=== PATIENT | female | born 1955 | race Caucasian/White ===

== ENCOUNTER 2017-12-05 13:02 | Inpatient (IN) ==
--- NOTE | 2017-12-05 13:34 | ED ---
HPI General Chief complaint: Fall Stated complaint: Fall Time Seen by Provider: 12/05/17 13:25 Source: patient Mode of arrival: ambulatory Limitations: no limitations History of Present Illness HPI narrative: 62-year-old female with history of hypertension and hypothyroidism presents emergency department for evaluation following a trip and fall. Patient states she was walking when her ankle rolled and she fell. She landed on her right forearm/elbow. She did not strike her head or lose consciousness. She states since the incident she has been unable to flex or extend the elbow without significant pain. She feels like it is "just flopping. " Pain is constant, throbbing. Moderate severity. She denies any alterations in sensation. She has no other symptoms to report. She last ate around 10 AM this morning. Related Data Home Medications Medication Instructions Recorded Confirmed Singulair 12/05/17 aspirin 81 mg PO DAILY 12/05/17 12/05/17 atenolol 100 mg PO DAILY 12/05/17 12/05/17 levothyroxine 50 mcg PO DAILY 12/05/17 12/05/17 liothyronine 5 mcg PO BID 12/05/17 12/05/17 meloxicam 12/05/17 Allergies Allergy/AdvReac Type Severity Reaction Status Date / Time iodine Allergy Severe Anaphylaxis Verified 12/05/17 13:21 potassium iodide Allergy Severe Anaphylaxis Verified 12/05/17 13:21 povidone-iodine Allergy Severe Anaphylaxis Unverified 12/05/17 13:21 sodium iodide Allergy Severe Anaphylaxis Verified 12/05/17 13:21 sodium iodide Allergy Severe Anaphylaxis Verified 12/05/17 13:21 TYLENOL WITH CODEINE Allergy Intermediate NAUSEA Uncoded 03/05/06 13:22 Review of Systems Except as stated in HPI: all other systems reviewed are negative [facility] Medical History Medical History Chronic pain (Acute) History of hysterectomy (Acute) Hypertension (Acute) Hypothyroidism (Acute) Social History Social History Substance History: No History of Abuse Second Hand Smoke Exposure: Yes Smoking Status: Never smoker How Often Do You Have a Drink Containing Alcohol: Monthly or less Recent Travel in [facility] within the Last 8 Weeks: No Recent Out of Country Travel within the Last 8 Weeks: No Immunization History Tetanus Immunization: >5 Years Hx Influenza Vaccine This Season: No Exam Narrative Exam Narrative: GENERAL: Well-nourished female patient, in no acute distress. SKIN: Focused skin assessment warm/dry. HEAD: Atraumatic. Normocephalic. EYES: Pupils equal and round. No scleral icterus. No injection or drainage. ENT: No nasal bleeding or discharge. Mucous membranes pink and moist. NECK: Trachea midline. No JVD. CARDIOVASCULAR: Regular rate and rhythm. No murmur appreciated. RESPIRATORY: No accessory muscle use. Clear to auscultation. Breath sounds equal bilaterally. GASTROINTESTINAL: Abdomen soft, non-tender, nondistended. Hepatic and splenic margins not palpable. MUSCULOSKELETAL: No obvious deformities. No clubbing. No cyanosis. Swelling of the right elbow. Patient holds the right upper extremity flexed across the abdomen. Distal pulses are palpable. Attempt to extend the right elbow elicits pain. Patient has weakened channel sales manager strength on the right stating that this is the pain in her arm. Cap refills within normal limits. NEUROLOGICAL: Awake and alert. No obvious cranial nerve deficits. Motor grossly within normal limits. Normal speech. PSYCHIATRIC: Appropriate mood and affect; insight and judgment normal. Course Initial Documented Vital Signs Temperature 97.4 F L 12/05/17 13:12 Pulse Rate 75 12/05/17 13:12 Respiratory Rate 16 12/05/17 13:12 Blood Pressure 151/66 H 12/05/17 13:12 Pulse Oximetry 95 12/05/17 13:12 Last Documented Vital Signs Temperature 97.4 F L 12/05/17 13:17 Pulse Rate 72 12/05/17 13:17 Respiratory Rate 16 12/05/17 13:17 Blood Pressure 151/66 H 12/05/17 13:17 Pulse Oximetry 95 12/05/17 13:17 Medical Decision Making DANIKA Attestation DNAIKA supervised visit: Yes Attestation: I, Dr. Eaton, have reviewed the advance practice practitioner's documentation and am in agreement, met with the patient face to face, made the diagnosis, and the medical decision making was done by me. *My assessment and Findings: Patient had a fall onto the elbow and has a fracture dislocation. There is a lot of bone fragments around the joint. He was discussed with Dr. Almaraz who is going to take this patient immediately to the operating room after CT scan is evaluated. Therefore will not attempt reduction at this time. [facility] Narrative Medical decision making narrative: 62-year-old female presents emergency department for evaluation of a right elbow injury sustained today and a trip and fall. Patient is treated for pain. Preop lab work is ordered. x-ray imaging is reviewed and shows a fracture dislocation of the right elbow. I discussed the patient with Dr. Almaraz, orthopedic surgeon chuck wagon cook. He request CT imaging of the elbow to be done as soon as possible and will be taking the patient to the OR. Differential Diagnosis Differential Diagnosis: Fracture versus dislocation versus contusion versus sprain Medical Records Medical records reviewed: Yes I reviewed the patient's medical records. Lab Data Lab results reviewed: Yes I reviewed the patient's lab results. Result diagrams: 12/05/17 13:50 12/05/17 13:50 Lab Results 12/05/17 12/05/17 12/05/17 Range/Units 13:50 13:50 13:50 WBC 11.3 H (4.0-11.0) th/mm3 RBC 4.23 (4.00-5.30) mil/mm3 Hgb 13.2 (11.6-15.3) gm/dL Hct 39.6 (35.0-46.0) % MCV 93.5 (80.0-100.0) fL MCH 31.2 (27.0-34.0) pg MCHC 33.3 (32.0-36.0) % RDW 12.5 (11.6-17.2) % Plt Count 215 (150-450) th/mm3 MPV 10.4 (7.0-11.0) fL Neut % (Auto) 75.8 H (16.0-70.0) % Lymph % (Auto) 15.2 (9.0-44.0) % [place] % (Auto) 7.3 (0.0-8.0) % Eos % (Auto) 1.3 (0.0-4.0) % Baso % (Auto) 0.4 (0.0-2.0) % Neut # (Auto) 8.5 H (1.8-7.7) th/mm3 Lymph # (Auto) 1.7 (1.0-4.8) th/mm3 [place] # (Auto) 0.8 (0.0-0.9) th/mm3 Eos # (Auto) 0.1 (0.0-0.4) th/mm3 Baso # (Auto) 0.0 (0.0-0.2) th/mm3 WBC Differential . Differential Comment Auto diff final PT 10.0 (9.8-11.6) sec INR 1.0 Ratio APTT 25.6 (24.3-30.1) sec Sodium 138 (136-145) meq/L Potassium 4.0 (3.5-5.1) meq/L Chloride 104 (98-107) meq/L Carbon Dioxide 26.4 (21.0-32.0) meq/L Anion Gap 8 (5-15) meq/L BUN 16 (7-18) mg/dL Creatinine 0.89 (0.50-1.00) mg/dL Estimated GFR 65 L (>89) mL/min Random Glucose 95 (74-106) mg/dL Calcium 9.4 (8.5-10.1) mg/dL Imaging Data Radiologist's impression: Elbow X-Ray 12/05/17 13:45 CONCLUSION: Fracture dislocation of the elbow with posterior dislocation of the proximal ulna and radius. Radius neck fracture also identified with displacement of the radial head fragment. Multiple additional small fracture fragments are seen anteriorly and posteriorly, possibly within the joint. Discharge Plan Physicians Team ED Provider: Jonel Eaton ED Midlevel Provider: Tamia Barrera Primary Care Provider: Ambrose Adams Rxs /Orders / Referrals /Forms Prescriptions: No Action atenolol 100 mg Tablet 100 mg PO DAILY RF: 0 levothyroxine 50 mcg Tablet 50 mcg PO DAILY RF: 0 Singulair RF: 0 meloxicam RF: 0 aspirin 81 mg Tablet,Chewable 81 mg PO DAILY RF: 0 liothyronine 5 mcg Tablet 5 mcg PO BID RF: 0 Discharge Interventions Interventions: Vital Signs Last Done: 12/05/17 13:17 Status ED Status: With Doctor
[2017-12-05] MEDS ORDERED: Morphine Inj 4 MG/ML Vial IV.PUSH ONE (13:50)
[2017-12-05 14:07] LABS: Baso % (Auto) 0.4 % (0.0-2.0); Eos # (Auto) 0.1 th/mm3 (0.0-0.4); Eos % (Auto) 1.3 % (0.0-4.0); Hematocrit 39.6 % (35.0-46.0); Hemoglobin 13.2 gm/dL (11.6-15.3); Lymph # (Auto) 1.7 th/mm3 (1.0-4.8); Lymph % (Auto) 15.2 % (9.0-44.0); Mean Corpuscular HGB Conc 33.3 % (32.0-36.0); Mean Corpuscular Hemoglobin 31.2 pg (27.0-34.0); Mean Corpuscular Volume 93.5 fL (80.0-100.0); Mean Platelet Volume 10.4 fL (7.0-11.0); Mono # (Auto) 0.8 th/mm3 (0.0-0.9); Mono % (Auto) 7.3 % (0.0-8.0); Neut # (Auto) 8.5 th/mm3 (1.8-7.7); Neut % (Auto) 75.8 % (16.0-70.0); Platelet Count 215 th/mm3 (150-450); Red Blood Count 4.23 mil/mm3 (4.00-5.30); Red Cell Distribution Width 12.5 % (11.6-17.2); White Blood Count 11.3 th/mm3 (4.0-11.0)
[2017-12-05 14:16] LABS: Activated Partial Thrombo Time 25.6 sec (24.3-30.1)
[2017-12-05 14:29] LABS: Calcium 9.4 mg/dL (8.5-10.1); Carbon Dioxide 26.4 meq/L (21.0-32.0)
--- NOTE | 2017-12-05 15:20 | XR ---
EXAM DATE: 12/05/2017 2:55 PM EDT AGE/SEX: 62 years / Female INDICATIONS: Pain from fall on right side, entire elbow with radiating pain up humerus and down fore arm. CLINICAL DATA: This is the patient's initial encounter. Patient reports that signs and symptoms have been present for 1 day and indicates a pain score of 10/10. MEDICAL/SURGICAL HISTORY: None. None. COMPARISON: No prior exams available for comparison. FINDINGS: 3 views of the right elbow. Posterior dislocation of the radial head and proximal ulna at the elbow. Radial neck fracture with 1.6 cm displacement of the radial head fragment. Large joint effusion. CONCLUSION: Fracture dislocation of the elbow with posterior dislocation of the proximal ulna and radius. Radius neck fracture also identified with displacement of the radial head fragment. Multiple additional smal l fracture fragments are seen anteriorly and posteriorly, possibly within the joint. Electronically signed by: Jose Welch MD 12/05/2017 3:19 PM EDT
[2017-12-05] MEDS ORDERED: Phenylephrine/NS 1000 MCG/10ML Syringe IV.PUSH ONE (15:43)
[2017-12-05] MEDS ORDERED: Glycopyrrolate Inj 1 MG/5 ML Syringe IV.PUSH ONE (15:43)
[2017-12-05] MEDS ORDERED: Lidocaine PF 1% Inj 5 ML Syringe INFILTRATN ONE (15:43)
--- NOTE | 2017-12-05 16:58 | CT ---
EXAM DATE: 12/05/2017 4:51 PM EDT AGE/SEX: 62 years / Female INDICATIONS: Trauma. Fall. Right elbow pain. CLINICAL DATA: This is the patient's initial encounter. Patient reports that signs and symptoms have been present for 1 day and indicates a pain score of 6/10. MEDICAL/SURGICAL HISTORY: Hypertension. None. RADIATION DOSE: 33.22 CTDI (mGy) ; Patient body habitus COMPARISON: No prior exams available for comparison. TECHNIQUE: Multiple contiguous axial images were acquired using a multi-row detector CT scanner. Mu ltiplanar reconstruction was performed in the sagittal and coronal planes. Using automated exposure control and adjustment of the mA and/or kV according to patient size, radiation dose was kept as low as reasonably achievable to obtain optimal diagnostic quality images. DICOM format image data is keily ilable electronically for review and comparison. FINDINGS: Comminuted fracture of the proximal radius involving the head and neck. The dominant fragments of the radial head are displaced posteriorly and abut the posterior surface of the distal humerus. There is marked disruption of the articular surface of the radial head and displacement and rotation of the fragments. Posterior dislocation of the proximal ulna at the elbow.Several small bone fragments anteriorly in th e joint may be related to the coronoid process of the ulna. Large joint effusion. Prominent adjacent soft tissue swelling. CONCLUSION: Fracture dislocation at the elbow with comminuted displaced proximal radius fracture involving the he ad and neck of the radius. Fracture involves the articular surface of the radial head. Proximal ulna is also dislocated posteriorly at the elbow. Electronically signed by: Jose Welch MD 12/05/2017 4:57 PM EDT
--- NOTE | 2017-12-05 17:14 | P.CONOP ---
[facility] Orthopedics Consult Note - [facility] Consult date: 12/05/17 Consult reason: joint pain, fracture Chief complaint: right elbow dislocation/Fracture Narrative: The patient is a 62-year-old female who had a mechanical fall onto the right arm. She noticed immediate deformity and pain about the right elbow. She is unable to move the elbow. The pain was very significant. The patient says that she developed numbness of the right hand and arm following the injury which has been persistent. She denies previous problems in this area in the past. The patient was brought to [facility]. She was found to have a fracture dislocation. I reviewed the x-rays with the emergency room physician. I asked him to obtain a stat CT scan which is just been performed. Review of Systems A 12 point review of systems was reviewed and is negative unless as specified in the history of present illness. [facility] - History History Provided By: Patient - Medical History Medical History: Medical History (Last Reviewed 12/05/17 @ 17:03 by Jaspal Dunn MD) Chronic pain History of hysterectomy Hypertension Hypothyroidism Right bundle branch block - Family History Family History: Family History (Last Updated 12/05/17 @ 17:03 by Jaspal Dunn MD) Other Family history non-contributory - Tobacco History Second Hand Smoke Exposure: Yes Tobacco Use In Past 30 Days: No Smoking Status: Never smoker - Alcohol History How Often Do You Have a Drink Containing Alcohol: Monthly or less - Substance Use History Substance History: No History of Abuse - Travel History Recent Travel in the [place] Within the Last 8 Weeks: No Recent Travel Out of the Country Within the Last 8 Weeks: No - Immunization History Tetanus Immunization: >5 Years Hx Influenza Vaccine This Season: No Medications and Allergies Allergies Allergy/AdvReac Type Severity Reaction Status Date / Time iodine Allergy Severe Anaphylaxis Verified 12/05/17 13:21 potassium iodide Allergy Severe Anaphylaxis Verified 12/05/17 13:21 povidone-iodine Allergy Severe Anaphylaxis Unverified 12/05/17 13:21 sodium iodide Allergy Severe Anaphylaxis Verified 12/05/17 13:21 sodium iodide Allergy Severe Anaphylaxis Verified 12/05/17 13:21 TYLENOL WITH CODEINE Allergy Intermediate NAUSEA Uncoded 12/05/17 16:46 Home Medications Medication Instructions Recorded Confirmed Type Singulair 12/05/17 History aspirin 81 mg PO DAILY 12/05/17 12/05/17 History atenolol 100 mg PO DAILY 12/05/17 12/05/17 History levothyroxine 50 mcg PO DAILY 12/05/17 12/05/17 History liothyronine 5 mcg PO BID 12/05/17 12/05/17 History meloxicam 12/05/17 History Exam Vital signs: Vital Signs 12/05/17 13:12 12/05/17 13:17 12/05/17 16:49 Temperature 97.4 F L 97.4 F L Pulse Rate 75 72 87 Respiratory Rate 16 18 Blood Pressure 151/66 H 151/66 H 157/72 H Pulse Oximetry 95 95 Intake & Output 12/04/17 12/05/17 12/05/17 18:59 06:59 18:59 Weight 92.533 kg Narrative: GENERAL: The patient is awake, alert and oriented x3. The patient is no significant distress. Her is at the bedside. PSYCHIATRIC: Normal affect, insight, and judgment. HEENT: Head is atraumatic. Oropharynx is moist. Extraocular muscles are intact. NECK: Non-tender and supple. LUNGS: No audible wheezing. He has normal inspiratory effort with no signs of dyspnea HEART: Regular rate and rhythm. ABDOMEN: Soft, nontender, and nondistended. BACK: No CVA tenderness. EXTREMITIES/SKIN: The right upper extremity shows deformity of a moderate degree. She has significant limited range of motion of the right elbow. No wounds were noted. The compartments were soft. The right shoulder and wrist had no tenderness. The patient has numbness in the ulnar nerve distribution, specifically the small finger and the ring finger. She also has weakness of the dorsal interossei with some weakness of the small finger and ring finger as well. Her abductor pollicis brevis and extensor pollicis longus are both intact. She has normal sensation to superficial radial and median nerves. The right knee has a small to moderate-sized abrasion with no signs of infection. There is no swelling about the right knee and no effusion with good range of motion. Results - Labs Result Diagrams: 12/05/17 13:50 12/05/17 13:50 Labs: Laboratory Results - last 24 hr 12/05/17 12/05/17 12/05/17 13:50 13:50 13:50 WBC 11.3 H RBC 4.23 Hgb 13.2 Hct 39.6 MCV 93.5 MCH 31.2 MCHC 33.3 RDW 12.5 Plt Count 215 MPV 10.4 Neut % (Auto) 75.8 H Lymph % (Auto) 15.2 [place] % (Auto) 7.3 Eos % (Auto) 1.3 Baso % (Auto) 0.4 Neut # (Auto) 8.5 H Lymph # (Auto) 1.7 [place] # (Auto) 0.8 Eos # (Auto) 0.1 Baso # (Auto) 0.0 WBC Differential . Differential Comment Auto diff final PT 10.0 INR 1.0 APTT 25.6 Sodium 138 Potassium 4.0 Chloride 104 Carbon Dioxide 26.4 Anion Gap 8 BUN 16 Creatinine 0.89 Estimated GFR 65 L Random Glucose 95 Calcium 9.4 - Diagnostic results Imaging: Impressions Elbow X-Ray 12/05/17 13:45 CONCLUSION: Fracture dislocation of the elbow with posterior dislocation of the proximal ulna and radius. Radius neck fracture also identified with displacement of the radial head fragment. Multiple additional small fracture fragments are seen anteriorly and posteriorly, possibly within the joint. Elbow CT 12/05/17 15:52 CONCLUSION: Fracture dislocation at the elbow with comminuted displaced proximal radius fracture involving the head and neck of the radius. Fracture involves the articular surface of the radial head. Proximal ulna is also dislocated posteriorly at the elbow. Elbow x-ray: report reviewed, image reviewed Elbow CT: report reviewed, image reviewed Assessment and Plan - Assessment and Plan Right elbow fracture dislocation with significant comminution and displacement of radial head and posterior elbow dislocation. 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 Right knee abrasion. We discussed the diagnosis in detail. She understands this is a very significant problem to the right arm. We discussed that this is a serious condition effecting this patient's extremity. Nonoperative and operative options were discussed and reviewed. Potential consequences of both of these options were reviewed. I would not recommend nonoperative management as there are significant serious long-term problems with nonoperative management such as ongoing problems with her ulnar nerve, inability to use the elbow, chronic significant debilitating pain, and elbow deformity. The patient would like to move forward with urgent surgical management for this condition. This will consist of the patient having an open reduction of the ulnohumeral dislocation along with radial head replacement. We will clinically follow the ulnar nerve neurapraxia to see if this resolves by reducing the elbow. However, if she has ongoing symptoms it is possible she may need exploration of the ulnar nerve in the future. Additionally, she understands that we may find some instability of the elbow in surgery and she may require repair of ligaments as well. The risks and benefits of surgical management have been discussed in detail. The risks of surgery include, but are not limited to, injury to nerves, blood vessels, bleeding, infection, non-healing; loss of range on motion, dysfunction or weakness of the associated joints; blood clots, pneumonia, stroke, heart attack, and . - Attending Attestation Attending Attestation: A mid level provider in my office, nurse practitioner or PA, may see this patient on a follow up basis and continue to implement the plan including: starting or adjusting medications, injections of muscle, tendons, bursa or joints, cast application, orthotic or brace application, physical therapy, further radiographic studies including X-ray, MRI, CT, ultrasound or bone scan , vascular studies, neurological studies, or other specialist consultations, and proceeding with surgical management as appropriate..
[2017-12-05] MEDS ORDERED: Bupivacaine/Epinephrine Inj 0.25% 50 ML Vial ONE (18:37)
--- NOTE | 2017-12-05 21:12 | P.OP ---
- Preoperative Diagnosis (1) Closed fracture dislocation of elbow Comment: Right elbow dislocation of ulnohumeral and radiocapitellar joint. Right elbow comminuted displaced radial head fracture. Right elbow radial collateral ligament tear. Right elbow ulnar collateral ligament tear. Right elbow neuropraxia of ulnar nerve. - Postoperative Diagnosis (1) Closed fracture dislocation of elbow Comment: Right elbow dislocation of ulnohumeral and radiocapitellar joint. Right elbow comminuted displaced radial head fracture. Right elbow lateral collateral ligament tear. Right elbow ulnar collateral ligament tear. Right elbow neuropraxia of ulnar nerve. Date of procedure: 12/05/17 Procedure: Right elbow open reduction of ulnohumeral and radiocapitellar joint dislocation. Right elbow radial head replacement as treatment for comminuted radial head fracture. Right elbow repair of lateral collateral ligament. Right elbow repair of ulnar collateral ligament. Right elbow exploration of ulnar nerve. Implants: Skeletal dynamics: Align radial stem 8 mm x 2 mm. Align radial head and a locking screw, 24 mm head. Mytek (mini quick anchor) suture anchor 4 Surgeon: Jaspal Dunn MD Spray Ii Painter: DIANA Trotter The surgical procedure was assisted by my Advanced Registered Nurse Practitioner. My LASER BEAM CUTTER presence was necessary throughout this case for the manipulation and positioning of the surgical extremity. My LASER BEAM CUTTER was assisting me throughout the duration of this procedure. The skill set of an Advance Registered Nurse Practitioner was medically necessary to complete this procedure. During the surgical case, the assembler surgical garment was working at the back table and the Advance Registered Nurse Practitioner was directly assisting me. Operation and Findings: Tourniquet time: 21 minutes at 250 mmHg of pressure Estimated blood loss: 50 cc The patient received intravenous vancomycin and Ancef. After the appropriate anesthesia was administered, the patient's arm was prepped and draped in the usual sterile fashion. Local anesthetic with quarter percent Marcaine with epinephrine was given, and the arm was exsanguinated. The tourniquet was raised to 250 mmHg of pressure. We started with incision on the lateral aspect of the elbow. We identified the common extensor tendon and began incising through the deep fascia. Immediately we found that there was a complete rupture of the lateral collateral ligament with hematoma. The ligament was stripped completely off of the bone. We identified a fracture fragment of the radial head posteriorly. We had difficulty finding the remaining portion of the head. Fluoroscopic analysis showed us that about three quarters of the head was dislocated on the medial aspect of the elbow medial to the distal portion of the olecranon. We were unable to retrieve this portion of the radial head despite attempts of going through the joint. Tourniquet was released and hemostasis was achieved. Therefore, we incised medially. We immediately identified that the ulnar collateral ligament was completely ruptured as well. After dissecting through deep tissues we immediately found the remaining portion of the radial head which was removed and placed on the back table. We then explored the ulnar nerve and found that in the distal aspect of it as it was entering the flexor carpi ulnaris musculature it was severely contused. It did appear to be intact despite this contusion. We traced it up proximally as it was just superficial to the ulnar collateral ligament and then more proximally around the medial epicondyle. This portion of the nerve was intact without contusion. We protected the nerve throughout the case. The nerve was NOT transposed. We went to move forward with the radial head replacement. We performed osteotomy of the proximal radial shaft followed by sequential rasping up to a size 8. We calcar planed. We irrigated. We trialed the stem into position. We based the size of the radial head off of the previously excised radial head which was a 24. We trialed several neck lengths. We decided to move forward with a 2 mm neck length. It was difficult to determine stability because the elbow is still grossly unstable even when we were trialing the radial head. However, this replacement appeared to be very anatomic both on visualization and also on fluoroscopic analysis. We then placed the final stem into position which had excellent purchase via press-fit technique. We assembled the head and use the external guide provided to make sure that we had the appropriate alignment to the distal end of the ulna fovea. We tensioned the set screw using the provided torque limiting tanker truck driver. The ulnohumeral joint was reduced. We proceeded with ligament repair both laterally and medially. We started on the lateral side We used 3 Mytec anchors laterally along the course of the avulsed lateral collateral ligament. We repaired the ligament using a combination of direct suture repair to the bone but then we also oversewed the sutures and further [id number] fashion and then tied themselves to each other. We further augmented the repair using multiple #2 fiber wires providing further stability. We placed a single medial Mytec anchor. The posterior band was first repaired with then repairing the anterior band in a pants over vest type of fashion. We further augmented this with 2-0 FiberWire. We protected the ulnar nerve during the entire portion of this case. We then took fluoroscopic imaging showing anatomic alignment of the elbow on the AP and lateral views. Overall alignment was excellent. We irrigated. Skin was closed with 2-0 Vicryl followed by 3-0 nylon both medially and laterally. A splint was applied and fluoroscopic imaging again confirmed good alignment. Postoperative plan is for delayed range of motion.
[2017-12-05] MEDS ORDERED: Zolpidem Tartrate 5 MG Tablet PO PRN (21:14)
[2017-12-05] MEDS ORDERED: Post-op Orders (for Pharmacy) OTHER STA (21:14)
[2017-12-05] MEDS ORDERED: Morphine Inj 4 MG/ML Vial IV.PUSH PRN (21:14)
[2017-12-05] MEDS ORDERED: Bisacodyl 10 MG Supp RECTAL PRN (21:14)
[2017-12-05] MEDS ORDERED: Aluminum/Magnesium/Simethacone Susp 30 ML UDC PO PRN (21:14)
--- NOTE | 2017-12-05 22:17 | XR ---
EXAM DATE: 12/05/2017 10:05 PM EDT AGE/SEX: 62 years / Female INDICATIONS: ORIF rt elbow. Right radial head replacement. CLINICAL DATA: This is the patient's subsequent encounter. Patient reports that signs and symptoms h ave been present for 1 day and indicates a pain score of Nonresponsive. MEDICAL/SURGICAL HISTORY: Non-responsive. Non-responsive. COMPARISON: No prior exams available for comparison. FINDINGS: There is a proximal right radial head prosthesis. Normal alignment. No complications identified. Anch or screws present in the distal humerus. CONCLUSION: Radial head prosthesis as above. Electronically signed by: Alexandr Hitchcock MD 12/05/2017 10:16 PM EDT
--- NOTE | 2017-12-06 07:53 | P.PNOP ---
Subjective Interval history: The patient is resting comfortably in bed with minimal pain to the right elbow. Patient states the numbness she had preoperatively is improving. Physical Exam Vital signs: Vital Signs 12/05/17 13:12 12/05/17 13:17 12/05/17 16:49 Temperature 97.4 F L 97.4 F L Pulse Rate 75 72 87 Respiratory Rate 16 16 18 Blood Pressure 151/66 H 151/66 H 157/72 H Pulse Oximetry 95 95 12/05/17 17:10 12/05/17 22:00 12/05/17 22:15 Temperature 98.1 F 98.4 F Pulse Rate 84 93 H 87 Respiratory Rate 16 14 22 Blood Pressure 141/93 H 138/68 136/63 Pulse Oximetry 95 97 94 L 12/05/17 22:45 12/05/17 23:00 12/05/17 23:15 Temperature Pulse Rate 105 H 104 H 91 H Respiratory Rate 20 24 14 Blood Pressure 135/77 143/66 H 149/70 H Pulse Oximetry 94 L 94 L 93 L 12/05/17 23:30 12/05/17 23:40 12/06/17 03:33 Temperature 98.2 F Pulse Rate 105 H 92 H Respiratory Rate 20 14 17 Blood Pressure 136/66 Pulse Oximetry 94 L 94 L Intake & Output 12/05/17 12/06/17 12/06/17 18:59 06:59 18:59 Intake Total 1900 / 1900 Output Total 450 / 450 Balance 1450 / 1450 Weight 92.533 kg Intake: IV 100 / 100 Ancef Inj 1,000 MG In NS Inj 100 / 100 100 ML @ 200 mls/hr IV.SIG Q6H SANA Rx#:[id number] Anesthesia Amount 1500 / 1500 Other 300 / 300 Output: Emesis 300 / 300 Estimated Blood Loss 150 / 150 Other: Date of Last Bowel Movement 12/05/17 # Emeses 3 Narrative: Right elbow splint and dressing C/D/I. Patient moves all fingers. Good sensation to light touch x 5 with only mild numbness to the pinky finger. Sling in place. Minimal swelling to hand. Results - Labs CBC & Chem 7: 12/05/17 13:50 12/05/17 13:50 Laboratory Results - last 24 hr 12/05/17 12/05/17 12/05/17 13:50 13:50 13:50 WBC 11.3 H RBC 4.23 Hgb 13.2 Hct 39.6 MCV 93.5 MCH 31.2 MCHC 33.3 RDW 12.5 Plt Count 215 MPV 10.4 Neut % (Auto) 75.8 H Lymph % (Auto) 15.2 [place] % (Auto) 7.3 Eos % (Auto) 1.3 Baso % (Auto) 0.4 Neut # (Auto) 8.5 H Lymph # (Auto) 1.7 [place] # (Auto) 0.8 Eos # (Auto) 0.1 Baso # (Auto) 0.0 WBC Differential . Differential Comment Auto diff final PT 10.0 INR 1.0 APTT 25.6 Sodium 138 Potassium 4.0 Chloride 104 Carbon Dioxide 26.4 Anion Gap 8 BUN 16 Creatinine 0.89 Estimated GFR 65 L Random Glucose 95 Calcium 9.4 - Imaging Impressions Elbow X-Ray 12/05/17 00:00 CONCLUSION: Radial head prosthesis as above. Elbow X-Ray 12/05/17 13:45 CONCLUSION: Fracture dislocation of the elbow with posterior dislocation of the proximal ulna and radius. Radius neck fracture also identified with displacement of the radial head fragment. Multiple additional small fracture fragments are seen anteriorly and posteriorly, possibly within the joint. Elbow CT 12/05/17 15:52 CONCLUSION: Fracture dislocation at the elbow with comminuted displaced proximal radius fracture involving the head and neck of the radius. Fracture involves the articular surface of the radial head. Proximal ulna is also dislocated posteriorly at the elbow. Assessment and Plan - Assessment and Plan POD #1: Right Elbow replacement of radial head with multiple ligament reconstruction Right Elbow ulnar neurapraxia 1. NWB RUE 2. Maintain splint and dressing. 3. Sling for comfort and support. 4. Stable per ortho for discharge home when medically clear. 5. Will f/u in the office in 1-[address] Dunn or DIANA Thompson 6. Neurapraxia is improving.
[2017-12-06] MEDS: Senna/Docusate Sodium 8.6/50 MG Tablet PO SCH ×2 (10:01→20:23)
[2017-12-06] MEDS: Multivitamin/Minerals Therapeutic Tablet PO SCH (10:01)
[2017-12-06] MEDS ORDERED: Atenolol 100 MG Tablet PO SCH (14:00)
--- NOTE | 2017-12-06 14:11 | ECG ---
Date Performed: 12/05/2017 Time Performed: 16:03:37 PTAGE: 62 years EKG: Sinus rhythm WITH SINUS ARRHYTHMIA MARKED LEFT AXIS DEVIATION LEFT BUNDLE BRANCH BLOCK ABNORMAL ECG Artifact Sinc e the PREVIOUS TRACING , no significant change noted DOCTOR: Pam Sauceda Interpretating Date/Time 12/06/2017 14:10:03
--- NOTE | 2017-12-06 14:41 | P.CON ---
History of Present Illness Service: Hospitalist Services Consult date: 12/06/17 Requesting Physician: Jaspal Dunn Reason for Consult: Assist with medical management Primary Care Provider: Ambrose Adams MD Chief Complaint: s/p right elbow replacement of radial head History of Present Illness: This is a 62yo female with a PMHX of hypertension and hypothyroidism who suffered a mechanical fall onto the right arm resulting in right elbow comminuted fracture dislocation. She underwent a right elbow radial head replacement, repair of lateral and ulnar collateral ligament and exploration of the ulnar nerve. Hospitalist services have been consulted to assist with medical management. Patient seen and examined. Patient reports she is doing well postoperatively. Her pain is well controlled. She reports occasional chills. She denies any fevers. She denies any chest pain or shortness of breath. She denies any nausea, vomiting or abdominal pain. She has not had a bowel movement since surgery. Review of Systems All other systems reviewed negative except as stated in HPI PMFSH - History History Provided By: Patient, Significant Other - Medical History Medical History: Medical History (Last Updated 12/06/17 @ 14:09 by Michell Norman) History of hysterectomy (Acute) Chronic pain Hypertension Hypothyroidism Right bundle branch block - Family History Family History: Family History (Last Updated 12/06/17 @ 14:11 by Michell Norman) Mother CHF (congestive heart failure) ESRD (end stage renal disease) Other Family history non-contributory - Tobacco History Second Hand Smoke Exposure: Yes Tobacco Use In Past 30 Days: No Smoking Status: Never smoker - Alcohol History How Often Do You Have a Drink Containing Alcohol: Never - Substance Use History Substance History: No History of Abuse - Travel History Recent Travel in the [place] Within the Last 8 Weeks: No Recent Travel Out of the Country Within the Last 8 Weeks: No - Immunization History Tetanus Immunization: >5 Years Hx Influenza Vaccine This Season: No Medications and Allergies Active Medications: Active Medications Hydrocodone Bitart/Acetaminophen ([place] 5/325) 1 tab PO Q4H PRN PRN Reason: PAIN LESS THAN 5 ON SCALE Last Admin: 12/06/17 07:34 Dose: 1 tab Hydrocodone Bitart/Acetaminophen ([place] 5/325) 2 tab PO Q6H PRN PRN Reason: PAIN SCALE 5 TO 10 Al Hydrox/Mg Hydrox/Simethicone (Mag-Al Plus Susp Liq) 30 ml PO Q6H PRN PRN Reason: INDIGESTION Al Hydroxide/Mg Hydroxide (Milk Of Magnesia Liq) 30 ml PO BID PRN PRN Reason: Mild Constipation Atenolol (Tenormin) 100 mg PO DAILY [facility] Bisacodyl (Dulcolax Supp) 10 mg RECTAL DAILY PRN PRN Reason: SEVERE CONSITIPATION Diphenhydramine HCl (Benadryl) 25 mg PO Q6H PRN PRN Reason: ITCHING Lactated Ringer's (Lr 1000 Ml Inj) 1,000 mls @ 80 mls/hr IV.CONT .[id number] [facility] Last Admin: 12/06/17 13:01 Dose: Not Given Lactulose (Lactulose Liq) 30 ml PO DAILY PRN PRN Reason: SEVERE CONSITIPATION Levothyroxine Sodium (Synthroid) 50 mcg PO DAILY [facility] Liothyronine Sodium (Cytomel) 5 mcg PO BID [facility] Miscellaneous Information ([facility]) 1 each OTHER UNSCH PRN PRN Reason: SEE LABEL COMMENTS Stop: 12/06/17 21:57 Morphine Sulfate (Morphine Inj) 2 mg IV.PUSH Q3H PRN PRN Reason: BREAKTHROUGH PAIN Multivitamins/Minerals (Theragran-M) 1 tab PO BID [facility] Stop: 02/04/18 08:59 Last Admin: 12/06/17 10:01 Dose: 1 tab Ondansetron HCl (Zofran Inj) 4 mg IV.PUSH Q6H PRN PRN Reason: NAUSEA OR VOMITING Last Admin: 12/06/17 06:34 Dose: 4 mg Senna/Docusate Sodium (Anne-Colace) 1 tab PO BID [facility] Last Admin: 12/06/17 10:01 Dose: 1 tab Sennosides (Senokot) 17.2 mg PO BID PRN PRN Reason: Moderate Constipation Sodium Chloride (Ns Flush) 2 ml IV.FLUSH BID [facility] Last Admin: 12/06/17 13:01 Dose: 2 ml Sodium Chloride (Ns Flush) 2 ml IV.FLUSH PRN PRN PRN Reason: FLUSH AFTER USING IV ACCESS Zolpidem Tartrate (Ambien) 5 mg PO HS PRN PRN Reason: INSOMNIA Allergies Allergy/AdvReac Type Severity Reaction Status Date / Time iodine Allergy Severe Anaphylaxis Verified 12/05/17 13:21 potassium iodide Allergy Severe Anaphylaxis Verified 12/05/17 13:21 povidone-iodine Allergy Severe Anaphylaxis Unverified 12/05/17 13:21 sodium iodide Allergy Severe Anaphylaxis Verified 12/05/17 13:21 sodium iodide Allergy Severe Anaphylaxis Verified 12/05/17 13:21 TYLENOL WITH CODEINE Allergy Intermediate NAUSEA Uncoded 12/05/17 16:46 Home Medications Medication Instructions Recorded Confirmed Type Singulair HS 12/05/17 History aspirin 81 mg PO DAILY 12/05/17 12/05/17 History atenolol 100 mg PO DAILY 12/05/17 12/05/17 History levothyroxine 50 mcg PO DAILY 12/05/17 12/05/17 History liothyronine 5 mcg PO BID 12/05/17 12/05/17 History meloxicam BID 12/05/17 History Physical Exam Vital signs: Vital Signs 12/05/17 16:49 12/05/17 17:10 12/05/17 22:00 Temperature 98.1 F 98.4 F Pulse Rate 87 84 93 H Respiratory Rate 18 16 14 Blood Pressure 157/72 H 141/93 H 138/68 Pulse Oximetry 95 97 12/05/17 22:15 12/05/17 22:45 12/05/17 23:00 Temperature Pulse Rate 87 105 H 104 H Respiratory Rate 22 20 24 Blood Pressure 136/63 135/77 143/66 H Pulse Oximetry 94 L 94 L 94 L 12/05/17 23:15 12/05/17 23:30 12/05/17 23:40 Temperature 98.2 F Pulse Rate 91 H 105 H 92 H Respiratory Rate 14 20 14 Blood Pressure 149/70 H 136/66 Pulse Oximetry 93 L 94 L 94 L 12/06/17 00:00 12/06/17 03:33 12/06/17 04:00 Temperature 97.5 F L 97.1 F L Pulse Rate 97 H 95 H Respiratory Rate 18 17 17 Blood Pressure 147/77 H 134/68 Pulse Oximetry 97 97 12/06/17 08:00 12/06/17 12:00 Temperature 97.9 F 98.5 F Pulse Rate 90 97 H Respiratory Rate 18 16 Blood Pressure 136/63 129/66 Pulse Oximetry 95 97 Intake & Output 12/05/17 12/06/17 12/06/17 18:59 06:59 18:59 Intake Total 2140 / 2140 100 / 100 Output Total 450 / 450 Balance 1690 / 1690 100 / 100 Weight 92.533 kg 103.8 kg Intake: IV 100 / 100 100 / 100 Ancef Inj 1,000 MG In NS Inj 100 / 100 100 / 100 100 ML @ 200 mls/hr IV.SIG Q6H SANA Rx#:[id number] Oral 240 / 240 Anesthesia Amount 1500 / 1500 Other 300 / 300 Output: Emesis 300 / 300 Estimated Blood Loss 150 / 150 Other: # Voids 2 Date of Last Bowel Movement 12/05/17 # Emeses 3 Narrative: GENERAL: This is a WDWN overweight female, INAD. Awake and alert. Appears comfortable. SKIN: Warm and dry. No generalized rash. HEAD: Atraumatic. Normocephalic. EYES: Pupils equal and round. No scleral icterus. No injection or drainage. ENT: No nasal bleeding or discharge. Mucous membranes pink and moist. NECK: Trachea midline. No JVD. CARDIOVASCULAR: Regular rate and rhythm with no murmurs, rubs or gallops. RESPIRATORY: No accessory muscle use. Clear to auscultation anteriorly. Breath sounds equal bilaterally. GASTROINTESTINAL: Abdomen soft, non-tender, nondistended. Hepatic and splenic margins not palpable. MUSCULOSKELETAL: RUE in postop dressing and sling. Able to wiggle all fingers of the right hand. Digits warm, well perfused. Subjective decreased sensation right pinky finger. NEUROLOGICAL: Awake and alert. No obvious cranial nerve deficits. Motor grossly within normal limits. No focal neurologic findings appreciated. Normal speech. PSYCHIATRIC: Appropriate mood and affect; insight and judgment normal. Assessment and Plan - Assessment (1) Hypertension Code(s): I10 - Essential (primary) hypertension Status: Acute (2) Hypothyroidism Code(s): E03.9 - Hypothyroidism, unspecified Status: Acute (3) Closed fracture dislocation of elbow Code(s): S42.409A - Unspecified fracture of lower end of unspecified humerus, initial encounter for closed fracture Status: Acute - Plan 62yo female with a PMHX of hypertension and hypothyroidism who suffered a mechanical fall onto the right arm resulting in right elbow comminuted fracture dislocation. She underwent a right elbow radial head replacement, repair of lateral and ulnar collateral ligament and exploration of the ulnar nerve. Hospitalist services have been consulted to assist with medical management. s/p mechanical fall resulting right elbow fracture dislocation s/p right elbow radial head replacement, repair of lateral and ulnar collateral ligament and exploration of the ulnar nerve. -management per ortho service -pain medication with bowel regimen -monitor wound for healing Leukocytosis, suspect reactive Patient is afebrile, she does not -repeat CBC in am -monitor clinically Hypertension -resume home Atenolol Hypothyroidism -will resume home medications DVT prophylaxis -per Ortho service Thank you very kindly for this consultation. We will continue to follow along with you. Code Status: FULL Discussed Condition With: patient, nursing staff, Dr. Win Discharge Planning: Discharge plan per Ortho service
[2017-12-06] MEDS: Liothyronine 5 MCG Tablet PO SCH (20:23)
[2017-12-07] MEDS: Multivitamin/Minerals Therapeutic Tablet PO SCH ×2 (05:03→09:05)
[2017-12-07] MEDS ORDERED: Levothyroxine 50 MCG Tablet PO SCH (06:00)
[2017-12-07 08:14] LABS: Baso % (Auto) 0.3 % (0.0-2.0); Eos % (Auto) 0.2 % (0.0-4.0); Hematocrit 33.7 % (35.0-46.0); Hemoglobin 11.4 gm/dL (11.6-15.3); Lymph # (Auto) 1.7 th/mm3 (1.0-4.8); Lymph % (Auto) 14.7 % (9.0-44.0); Mean Corpuscular HGB Conc 33.7 % (32.0-36.0); Mean Corpuscular Hemoglobin 32.1 pg (27.0-34.0); Mean Corpuscular Volume 95.1 fL (80.0-100.0); Mean Platelet Volume 9.7 fL (7.0-11.0); Mono # (Auto) 1.3 th/mm3 (0.0-0.9); Mono % (Auto) 11.2 % (0.0-8.0); Neut # (Auto) 8.7 th/mm3 (1.8-7.7); Neut % (Auto) 73.6 % (16.0-70.0); Platelet Count 203 th/mm3 (150-450); Red Blood Count 3.55 mil/mm3 (4.00-5.30); White Blood Count 11.8 th/mm3 (4.0-11.0)
--- NOTE | 2017-12-07 08:28 | P.PNOP ---
Subjective Interval history: The patient is resting in bed in NAD. Patient states she feels sore but is not having severe pain like before surgery. Physical Exam Vital signs: Vital Signs 12/06/17 12:00 12/06/17 16:00 12/07/17 00:00 Temperature 98.5 F 98.0 F 98.7 F Pulse Rate 97 H 99 H 72 Respiratory Rate 16 18 18 Blood Pressure 129/66 130/68 106/55 L Pulse Oximetry 97 97 96 12/07/17 04:00 Temperature 98.3 F Pulse Rate 70 Respiratory Rate 20 Blood Pressure 102/54 L Pulse Oximetry 95 Intake & Output 12/06/17 12/07/17 12/07/17 18:59 06:59 18:59 Intake Total 100 / 100 400 / 400 Balance 100 / 100 400 / 400 Intake: IV 100 / 100 Ancef Inj 1,000 MG In NS Inj 100 / 100 100 ML @ 200 mls/hr IV.SIG Q6H SANA Rx#:[id number] Oral 400 / 400 Other: # Voids 5 Date of Last Bowel Movement 12/05/17 Narrative: Right elbow splint and dressing C/D/I. Patient moves all fingers. Good sensation to light touch x 5 with only mild numbness to the pinky finger. Sling in place. Minimal swelling to hand. Patient moves the right shoulder WNLS. Results - Labs CBC & Chem 7: 12/07/17 06:53 12/05/17 13:50 Laboratory Results - last 24 hr 12/07/17 06:53 WBC 11.8 H RBC 3.55 L Hgb 11.4 L Hct 33.7 L MCV 95.1 MCH 32.1 MCHC 33.7 RDW 13.0 Plt Count 203 MPV 9.7 Neut % (Auto) 73.6 H Lymph % (Auto) 14.7 [place] % (Auto) 11.2 H Eos % (Auto) 0.2 Baso % (Auto) 0.3 Neut # (Auto) 8.7 H Lymph # (Auto) 1.7 [place] # (Auto) 1.3 H Eos # (Auto) 0.0 Baso # (Auto) 0.0 WBC Differential . Differential Comment Auto diff final Assessment and Plan - Assessment and Plan POD #2: Right Elbow replacement of radial head with multiple ligament reconstruction Right Elbow ulnar neurapraxia 1. NWB RUE 2. Maintain splint and dressing. 3. Sling for comfort and support. 4. Stable per ortho for discharge home when medically clear. 5. Will f/u in the office in 1-[address] Dunn or DIANA Thompson 6. Neurapraxia continuing to improve.
[2017-12-07 08:34] LABS: Calcium 8.6 mg/dL (8.5-10.1); Carbon Dioxide 29.9 meq/L (21.0-32.0); Potassium 3.9 meq/L (3.5-5.1)
[2017-12-07] MEDS: Liothyronine 5 MCG Tablet PO SCH (09:04)
[2017-12-07] MEDS: Senna/Docusate Sodium 8.6/50 MG Tablet PO SCH (09:04)
--- NOTE | 2017-12-07 11:14 | P.DS ---
Date of admission: 12/05/17 16:01 Primary care physician: Ambrose Adams MD Attending physician on discharge: Guerline Win Anticipated date of discharge: 12/07/17 Brief History from admission: This is a 62yo female with a PMHX of hypertension and hypothyroidism who suffered a mechanical fall onto the right arm resulting in right elbow comminuted fracture dislocation. She underwent a right elbow radial head replacement, repair of lateral and ulnar collateral ligament and exploration of the ulnar nerve. Hospitalist services have been consulted to assist with medical management. Patient seen and examined. Patient reports she is doing well postoperatively. Her pain is well controlled. She reports occasional chills. She denies any fevers. She denies any chest pain or shortness of breath. She denies any nausea, vomiting or abdominal pain. She has not had a bowel movement since surgery. DS: Diagnosis - Discharge Diagnosis (1) Closed fracture dislocation of elbow Status: Acute (2) Hypertension Status: Acute (3) Hypothyroidism Status: Acute (4) Postoperative anemia due to acute blood loss Status: Acute DS: Medications - Discharge Medications Prescriptions: hydrocodone-acetaminophen [[place]] 1 - 2 tab PO Q4-6H #50 tab ondansetron [Zofran ODT] 4 mg PO Q6-8H PRN #15 tab PRN Reason: Nausea And Vomiting DS: Summary Hospital Course: Patient was seen in consultation by Dr. Dunn. She was continued on her home medications for hypertension and hypothyroidism. She underwent right elbow reduction of joint dislocation, radial head replacement, expiration of ulnar nerve, ulnar collateral ligament repair and lateral collateral ligament repair performed by Dr. Dunn on 12/05/2017. She participated with physical therapy and Occupational Therapy. As a result of her injury, she suffered right 5th digit neurapraxia that improved after surgical intervention. She was cleared for discharge from orthopedic standpoint. Patient was discharged to home in satisfactory condition with instructions to follow-up with Dr. Dunn in 1 week. She is to remain nonwt bearing RUE per Ortho instructions. - Time Spent with Patient Total time spent providing and/or coordinating discharge services: Greater than 30 minutes - Quality: VTE Deep Vein Thrombosis/Pulmonary Embolism Present on Admission: No Exam Vital signs: Vital Signs 12/06/17 12:00 12/06/17 16:00 12/07/17 00:00 Temperature 98.5 F 98.0 F 98.7 F Pulse Rate 97 H 99 H 72 Respiratory Rate 16 18 18 Blood Pressure 129/66 130/68 106/55 L Pulse Oximetry 97 97 96 12/07/17 04:00 12/07/17 08:00 Temperature 98.3 F 98.0 F Pulse Rate 70 65 Respiratory Rate 20 18 Blood Pressure 102/54 L 126/57 L Pulse Oximetry 95 96 Intake & Output 12/06/17 12/07/17 12/07/17 18:59 06:59 18:59 Intake Total 100 / 100 400 / 400 Balance 100 / 100 400 / 400 Intake: IV 100 / 100 Ancef Inj 1,000 MG In NS Inj 100 / 100 100 ML @ 200 mls/hr IV.SIG Q6H SANA Rx#:[id number] Oral 400 / 400 Other: # Voids 5 Date of Last Bowel Movement 12/05/17 12/05/17 Narrative: GENERAL: This is a WDWN overweight female, INAD. Awake and alert. Sitting up in bed. Appears comfortable. SKIN: Warm and dry. No generalized rash. HEAD: Atraumatic. Normocephalic. EYES: Pupils equal and round. No scleral icterus. No injection or drainage. ENT: No nasal bleeding or discharge. Mucous membranes pink and moist. NECK: Trachea midline. No JVD. CARDIOVASCULAR: Regular rate and rhythm with no murmurs, rubs or gallops. RESPIRATORY: No accessory muscle use. Clear to auscultation anteriorly. Breath sounds equal bilaterally. GASTROINTESTINAL: Abdomen soft, non-tender, nondistended. Hepatic and splenic margins not palpable. MUSCULOSKELETAL: RUE in postop dressing and sling. Able to wiggle all fingers of the right hand. Digits warm, well perfused. Subjective decreased sensation right pinky finger improving. NEUROLOGICAL: Awake and alert. No obvious cranial nerve deficits. Motor grossly within normal limits. No focal neurologic findings appreciated. Normal speech. PSYCHIATRIC: Appropriate mood and affect; insight and judgment normal. Results Procedures completed during hospitalization: - Preoperative Diagnosis (1) Closed fracture dislocation of elbow Comment: Right elbow dislocation of ulnohumeral and radiocapitellar joint. Right elbow comminuted displaced radial head fracture. Right elbow radial collateral ligament tear. Right elbow ulnar collateral ligament tear. Right elbow neuropraxia of ulnar nerve. - Postoperative Diagnosis (1) Closed fracture dislocation of elbow Comment: Right elbow dislocation of ulnohumeral and radiocapitellar joint. Right elbow comminuted displaced radial head fracture. Right elbow lateral collateral ligament tear. Right elbow ulnar collateral ligament tear. Right elbow neuropraxia of ulnar nerve. Date of procedure: 12/05/17 Procedure: Right elbow open reduction of ulnohumeral and radiocapitellar joint dislocation. Right elbow radial head replacement as treatment for comminuted radial head fracture. Right elbow repair of lateral collateral ligament. Right elbow repair of ulnar collateral ligament. Right elbow exploration of ulnar nerve. Implants: Skeletal dynamics: Align radial stem 8 mm x 2 mm. Align radial head and a locking screw, 24 mm head. Mytek (mini quick anchor) suture anchor 4 Surgeon: Jaspal Dunn MD Rug Designer: DIANA Trotter The surgical procedure was assisted by my Advanced Registered Nurse Practitioner. My SECONDARY EDUCATION PROFESSOR presence was necessary throughout this case for the manipulation and positioning of the surgical extremity. My SECONDARY EDUCATION PROFESSOR was assisting me throughout the duration of this procedure. The skill set of an Advance Registered Nurse Practitioner was medically necessary to complete this procedure. During the surgical case, the surgical nurse practitioner was working at the back table and the Advance Registered Nurse Practitioner was directly assisting me. Operation and Findings: Tourniquet time: 21 minutes at 250 mmHg of pressure Estimated blood loss: 50 cc The patient received intravenous vancomycin and Ancef. After the appropriate anesthesia was administered, the patient's arm was prepped and draped in the usual sterile fashion. Local anesthetic with quarter percent Marcaine with epinephrine was given, and the arm was exsanguinated. The tourniquet was raised to 250 mmHg of pressure. We started with incision on the lateral aspect of the elbow. We identified the common extensor tendon and began incising through the deep fascia. Immediately we found that there was a complete rupture of the lateral collateral ligament with hematoma. The ligament was stripped completely off of the bone. We identified a fracture fragment of the radial head posteriorly. We had difficulty finding the remaining portion of the head. Fluoroscopic analysis showed us that about three quarters of the head was dislocated on the medial aspect of the elbow medial to the distal portion of the olecranon. We were unable to retrieve this portion of the radial head despite attempts of going through the joint. Tourniquet was released and hemostasis was achieved. Therefore, we incised medially. We immediately identified that the ulnar collateral ligament was completely ruptured as well. After dissecting through deep tissues we immediately found the remaining portion of the radial head which was removed and placed on the back table. We then explored the ulnar nerve and found that in the distal aspect of it as it was entering the flexor carpi ulnaris musculature it was severely contused. It did appear to be intact despite this contusion. We traced it up proximally as it was just superficial to the ulnar collateral ligament and then more proximally around the medial epicondyle. This portion of the nerve was intact without contusion. We protected the nerve throughout the case. The nerve was NOT transposed. We went to move forward with the radial head replacement. We performed osteotomy of the proximal radial shaft followed by sequential rasping up to a size 8. We calcar planed. We irrigated. We trialed the stem into position. We based the size of the radial head off of the previously excised radial head which was a 24. We trialed several neck lengths. We decided to move forward with a 2 mm neck length. It was difficult to determine stability because the elbow is still grossly unstable even when we were trialing the radial head. However, this replacement appeared to be very anatomic both on visualization and also on fluoroscopic analysis. We then placed the final stem into position which had excellent purchase via press-fit technique. We assembled the head and use the external guide provided to make sure that we had the appropriate alignment to the distal end of the ulna fovea. We tensioned the set screw using the provided torque limiting rickshaw driver. The ulnohumeral joint was reduced. We proceeded with ligament repair both laterally and medially. We started on the lateral side We used 3 Mytec anchors laterally along the course of the avulsed lateral collateral ligament. We repaired the ligament using a combination of direct suture repair to the bone but then we also oversewed the sutures and further [id number] fashion and then tied themselves to each other. We further augmented the repair using multiple #2 fiber wires providing further stability. We placed a single medial Mytec anchor. The posterior band was first repaired with then repairing the anterior band in a pants over vest type of fashion. We further augmented this with 2-0 FiberWire. We protected the ulnar nerve during the entire portion of this case. We then took fluoroscopic imaging showing anatomic alignment of the elbow on the AP and lateral views. Overall alignment was excellent. We irrigated. Skin was closed with 2-0 Vicryl followed by 3-0 nylon both medially and laterally. A splint was applied and fluoroscopic imaging again confirmed good alignment. Postoperative plan is for delayed range of motion. Documented By: Jaspal Dunn MD 12/05/172053 Signed By: <Electronically signed by Jaspal Dunn MD> 12/05/172111 Labs on day of discharge: Labs from last 24 hours 12/07/17 12/07/17 12/07/17 06:53 06:53 06:53 WBC 11.8 H RBC 3.55 L Hgb 11.4 L Hct 33.7 L MCV 95.1 MCH 32.1 MCHC 33.7 RDW 13.0 Plt Count 203 MPV 9.7 Neut % (Auto) 73.6 H Lymph % (Auto) 14.7 [place] % (Auto) 11.2 H Eos % (Auto) 0.2 Baso % (Auto) 0.3 Neut # (Auto) 8.7 H Lymph # (Auto) 1.7 [place] # (Auto) 1.3 H Eos # (Auto) 0.0 Baso # (Auto) 0.0 WBC Differential . Differential Comment Auto diff final Sodium 144 Potassium 3.9 Chloride 110 H Carbon Dioxide 29.9 Anion Gap 4 L BUN 14 Creatinine 0.86 Estimated GFR 67 L Random Glucose 106 Calcium 8.6 D Vit D 1,25-Dihydroxy Pending - Impressions ITS Impressions Elbow X-Ray 12/05/17 13:45 CONCLUSION: Fracture dislocation of the elbow with posterior dislocation of the proximal ulna and radius. Radius neck fracture also identified with displacement of the radial head fragment. Multiple additional small fracture fragments are seen anteriorly and posteriorly, possibly within the joint. Elbow CT 12/05/17 15:52 CONCLUSION: Fracture dislocation at the elbow with comminuted displaced proximal radius fracture involving the head and neck of the radius. Fracture involves the articular surface of the radial head. Proximal ulna is also dislocated posteriorly at the elbow. Discharge Plan - Discharge Disposition Patient Disposition: 01 Discharge Home - Discharge Condition Condition: Stable - Discharge Order Discharge Orders: Discharge Order (Routine); Ordered 12/07/17 Ordered By: Michell Norman - Discharge Details Anticipated Discharge Date: 12/07/17 Discharge Comment: F/U in the office in 1-[address] Dunn or Dg Villagomez [facility] - Physicians Team Primary Care Provider: Ambrose Adams Attending Provider: Jaspal Dunn Other Providers: Guerline Win MD
== END 2017-12-07 15:44 | disposition home or self-care (01) ==
LOC: NEPC 13:02 → NEDA 16:01 → N06 23:54
PROVIDERS: ADMIT Orthopaedic Surgery; ATTEND Orthopaedic Surgery
PROC: ORIFELB (2017-12-05 17:49)